=== PATIENT | female | born 1990 | race Caucasian/White ===

== ENCOUNTER 2023-11-26 11:36 | Emergency (ER) | payer OTHER ==
[~2023-11-26] VITALS: Ht 165.1 cm; Wt 65.8 kg
[2023-11-26 12:40] LABS: ABG OXYGEN SATURATION 96.5 % (92.0-98.5); ABG PCO2 29.2 mmHg (35.0-45.0); ABG PH 7.467 (7.350-7.450); ABG PO2 92.1 mmHg (75.0-100.0); ABG TOTAL HEMOGLOBIN 13.1 G/dL (12.0-16.0); COHb 0.2 % (0.5-1.5); O2Hb 96.3 % (94.0-97.0); SITE, ABG Left Brachial; VENT MODE, BG 21% R/A
[2023-11-26 13:25] VITALS: BP 123/86; TEMP 98.4; O2SAT 99
== END 2023-11-26 13:25 | disposition home or self-care (01) ==
LOC: ER 11:36
DX: T58.8X1A Toxic effect of carbon monoxide from other source, accidental (unintentional), initial encounter (principal); R51.9 Headache, unspecified; Z60.2 Problems related to living alone; Y92.89 Other specified places as the place of occurrence of the external cause
CPT/HCPCS: 36600; 82803-TC